=== PATIENT | male | born 1980 | race Caucasian/White ===

== ENCOUNTER 2025-01-26 14:30 | Outpatient (RCR) | payer OTHER, SELFPAY | END 2025-01-28 09:32 | disposition home or self-care (01) | PROVIDERS: PCP Family Medicine; Visit Provider Orthopaedic Surgery Sports Medicine | DX: S86.011A Strain of right Achilles tendon, initial encounter (principal); S93.491S Sprain of other ligament of right ankle, sequela; M79.661 Pain in right lower leg; M76.61 Achilles tendinitis, right leg; M25.671 Stiffness of right ankle, not elsewhere classified; Z51.89 Encounter for other specified aftercare | CPT/HCPCS: 97110; 97116; 97161 ==